=== PATIENT | male | born 1945 | race Caucasian/White ===

== ENCOUNTER 2020-01-23 09:07 | Inpatient (IN) ==
[2020-01-23] MEDS ORDERED: TYLENOL PR ONE (09:10)
[2020-01-23] MEDS ORDERED: VANCOMYCIN 1 GM/NS 1 GM/250 ML IVPB IV ONE (09:10)
[2020-01-23] MEDS ORDERED: ZOSYN 4.5 GM in NS 100 ML IV ONE (09:10)
[2020-01-23] MEDS ORDERED: NS 1,000 ML IV ONE ×2 (09:10→11:23)
--- NOTE | 2020-01-23 09:31 | Diag Imaging Result Doc PS360 ---
CHEST-PORTABLE - 01/23/2020 INDICATION: fever, cough, ams COMPARISON: 03/24/2015 FINDINGS: Stable COPD. Stable cardiomegaly and pulmonary vascular congestion. No infiltrates or edema. No large pleural effusion. IMPRESSION: COPD. Cardiomegaly and pulmonary vascular congestion. Electronically signed by Eric Escoto 01/23/2020 9:28 AM
[2020-01-23] MEDS ORDERED: LASIX IV ONE (09:42)
--- NOTE | 2020-01-23 10:00 | EKG Report ---
Test Performed on : 01/23/2020 09:32:06 AM Test Reason : AMS Blood Pressure : / mmHG Vent. Rate : 095 BPM Atrial Rate : 069 BPM P-R Int : 000 ms QRS Dur : 106 ms QT Int : 408 ms P-R-T Axes : 000 -52 054 degrees QTc Int : 512 ms Accelerated Junctional rhythm. Left axis deviation Abnormal ECG When compared with ECG of 30-MAR-2015 06:49, Junctional rhythm. has replaced Atrial fibrillation. QT has lengthened Unconfirmed Result
[2020-01-23] MEDS ORDERED: OFIRMEV 1000 MG/ISOTONIC SOLN 1,000 MG/100 ML BOTTLE IV ONE (10:13)
[2020-01-23 10:14] LABS: ALLEN TEST YES; BE -0.2 mmoll (-3.0-3.0); BLOOD TYPE ARTERIAL; HCO3-(ACT) 24.7 mmoll (20.0-26.0); METHB 0.9 % (0.0-1.5); O2(CT) 19.4 mL/dL (15.0-23.0); O2HB 95.2 % (95.0-99.0); PCO2(98.6) 41 mmHg (35-45); PO2(98.6) 82 mmHg (60-100); SAMPLE BLOOD; THB 14.5 g/dL (11.5-17.4); pH(98.6) 7.39 (7.35-7.45)
[2020-01-23 10:15] LABS: INR 1.44; PROTIME 17.8 Seconds (11.0-16.0)
[2020-01-23 10:16] LABS: MODALITY NRB
[2020-01-23 10:16] LABS: ACETONE SERUM NEGATIVE (NEGATIVE); BASO# 0.02 X1000 (0.0-0.2); BASO% 0.2 % (0.0-0.8); EOS# 0.05 X1000 (0.0-0.7); EOS% 0.4 % (0.0-10.0); HEMATOCRIT 44.7 % (42.0-52.0); HEMOGLOBIN 14.7 g/dL (14.0-18.0); IMM GRAN# 0.03 X1000 (0.0-0.04); IMM GRAN% 0.3 % (0.0-0.5); LYMPH# 0.76 X1000 (1.2-3.4); LYMPH% 6.4 % (20.5-51.1); MCH 30.8 PG (27-31); MCHC 32.9 g/dL (33-37); MCV 93.7 FL (81-99); MONO# 0.65 X1000 (0.11-0.59); MONO% 5.5 % (1.7-9.3); MPV 10.1 FL (7.4-10.4); NEUT# 10.35 X1000 (1.4-6.5); NEUT% 87.2 % (42.2-75.2); PLT 204 X1000 (130-400); PTT 34.7 Seconds (22.3-41.8); RBC 4.77 XMIL (4.7-6.1); RDW 13.9 % (11.5-14.5); WBC 11.86 X1000 (4.8-10.8)
[2020-01-23] MEDS ORDERED: OFIRMEV 1000 MG/ISOTONIC SOLN 1,000 MG/100 ML BOTTLE ONE (10:20)
[2020-01-23 10:27] LABS: AGAP 14; ALB/GLOB RATIO 1.2; ALBUMIN 4.3 g/dL (3.5-5.0); ALKALINE PHOSPHATASE 95 U/L (32-122); BUN 16 mg/dL (8-22); CALCIUM 9.3 mg/dL (8.8-10.2); CHLORIDE 103 mmol/L (98-107); CK PROFILE 72 U/L (24-204); COSMO 283; CREATININE 1.1 mg/dL (0.7-1.2); ESTIMATED GFR > 60; GLUCOSE 142 mg/dL (70-104); GOT 27 U/L (10-34); GPT 17 U/L (10-44); POTASSIUM 5.7 mmol/L (3.5-5.1); SODIUM 140 mmol/L (136-145); TCO2 23 mmol/L (25-35); TOTAL BILIRUBIN 0.87 mg/dL (0.20-1.00); TOTAL PROTEIN 7.9 g/dL (6.3-8.3)
[2020-01-23 11:05] LABS: URINE SOURCE CATH
[2020-01-23 11:12] LABS: BILIRUBIN URINE NEGATIVE (NEGATIVE); BLOOD URINE NEGATIVE (NEGATIVE); COLOR YELLOW; GLUCOSE URINE NEGATIVE (NEGATIVE); KETONE URINE NEGATIVE (NEGATIVE); LEUKOCYTES URINE NEGATIVE (NEGATIVE); NITRITE URINE NEGATIVE (NEGATIVE); PH URINE 5.5; PROTEIN URINE NEGATIVE (NEGATIVE); SP GRAVITY URINE 1.014; TURBIDITY URINE CLEAR (CLEAR); UROBILINOGEN URINE NORMAL (NORMAL)
[2020-01-23 11:13] LABS: UR EPITHELIAL CELLS <10 /HPF (<10); URINE BACTERIA NEGATIVE /HPF; URINE RBC <10 /HPF (<10); URINE WBC <10 /HPF (<10)
--- NOTE | 2020-01-23 11:21 | PROVIDER DOCUMENTATION ---
This chart was entered by Mal Flanagan Scribe, acting as scribe for Alvin Beaulieu MD. HPI-Fever - General Stated Complaint: UNRESPONSIVE/FEVER/SOB Time Seen by Provider: 01/23/20 09:07 Source: family, EMS Allergies/Adverse Reactions: Patient Allergies Allergy/AdvReac Type Severity Reaction Status Date / Time cefaclor [From Ceclor] Allergy Unknown Verified 01/15/20 15:15 Home Medications: Home Medication List Medication Instructions Recorded Confirmed Last Taken Type Amlodipine [Norvasc] 10 mg PO DAILY 03/24/15 03/24/15 03/24/15 History 10 mg Furosemide [Lasix] 40 mg PO DAILY 03/24/15 03/24/15 03/24/15 History 40 mg Lisinopril 40 mg PO DAILY 03/24/15 03/24/15 03/24/15 History 40 mg Metformin [Glucophage] 500 mg PO DAILY 03/24/15 03/24/15 03/24/15 History 500 mg Terazosin [Hytrin] 5 mg PO DAILY 03/24/15 03/24/15 03/24/15 History 5 mg - History of Present Illness-Fever Nature of Presenting Problem: Pt is a 74 y/o M found this AM at [facility] by staff non-responsive, respirato ry distress with a fever of 102. SAT in the 80's. Staff staff reports pt is normally wheel chair bound and responsive. Report is [facility] has had exposure to COVID. Sister reports pt has reported multiple times he does want to be a DNR. Fever Severity/Quality: reports: greater than 102 F Onset/Duration: reports: this morning Timing: reports: still present Severity: reports: moderate Context: reports: decreased mental status Cognitive Baseline: alert, oriented x3 Modifying Factors: improves with: nothing Associated Symptoms: reports: shortness of breath Similar Symptoms Previously?: No Recently seen or treated by another doctor?: No Review of Systems - Adult - REVIEW OF SYSTEMS - ADULT Constitutional: reports: chills, fever Eyes: reports: no symptoms reported Ears, Nose, Mouth & Throat: reports: no symptoms reported Cardiovascular: denies: chest pain, edema Respiratory: reports: shortness of breath, wheezing Gastrointestinal: denies: nausea, vomiting Genitourinary: reports: no symptoms reported Musculoskeletal: reports: no symptoms reported Integumentary: denies: hives, itching Neurological: denies: dizziness/vertigo, headache/migraines Psychiatric: reports: no symptoms reported Endocrine: reports: no symptoms reported Hematologic/Lymphatic: reports: no symptoms reported Allergic/Immunologic: reports: no symptoms reported All Other Systems: Reviewed and Negative Past History - Adult - PAST MEDICAL HISTORY-ADULT Review of Records: reports: Old Records Reviewed, Nursing Assessment Review, Medications Reviewed - SOCIAL HISTORY Alcohol Use Frequency: never Living Situation: care facility Physical Exam-General - PHYSICAL EXAM-ADULT Initial Vital Signs Reviewed: Yes - CONSTITUTIONAL General Appearance: alert (Pt responds to loud voice tyler.), moderate distress (Mild to moderate) - EYES Eyes: PERRL/EOMI, pink conjunctivae - HEAD, EARS, NOSE, MOUTH & THROAT HENMT: moist mucous membranes, normal ENT inspection - NECK Neck: supple, normal inspection - RESPIRATORY Respiratory: decreased breath sounds, rhonchi (all garcia), increased rate - CARDIOVASCULAR Cardiovascular: normal peripheral pulses, tachycardia - GASTROINTESTINAL (ABDOMEN) Abdominal Exam: non tender, soft, distended - MUSCULOSKELETAL Back Exam: normal inspection, no CVA tenderness, no vertebral tenderness Extremity: no pedal edema. negative: normal gait (wheel chair bound) - SKIN Integumentary: normal color, warm/dry - NEUROLOGIC Neurologic: grossly normal, no motor/sensory deficits - PSYCHIATRIC Psych/Mental Status: negative: normal mood/affect, normal thought content, normal thought process, oriented x 3 Progress - PLAN OF CARE/RESULTS Progress/Plan/Lab Results: Vital Signs - 8 hr 01/23/20 09:02 01/23/20 11:14 Temperature 100.0 F H 100.9 F H Pulse Rate 97 H 88 Respiratory Rate 25 H 21 Blood Pressure 140/68 117/62 O2 Sat by Pulse Oximetry 95 96 01/23/20 09:18 Influenza Screen - Final Nasopharyngeal 01/23/20 09:18 Group A Strep Rapid Antigen - Final Throat Laboratory Results - last 24 hr 01/23/20 01/23/20 01/23/20 09:22 09:22 09:22 WBC RBC Hgb Hct MCV MCH MCHC RDW Std Deviation Plt Count MPV Immature Gran % (Auto) Neut % (Auto) Lymph % (Auto) [place] % (Auto) Eos % (Auto) Baso % (Auto) Immature Gran # (Auto) Neut # (Auto) Lymph # (Auto) [place] # (Auto) Eos # (Auto) Baso # (Auto) PT INR PTT (Actin FS) Specimen Type Sample Site pH pCO2 pO2 HCO3 Base Excess Oxyhemoglobin ABG O2 Sat (Calculated) ABG O2 Saturation ABG Carboxyhemoglobin ABG Methemoglobin Gen Test A-a O2 Difference Total Hemoglobin Lactate Liter Flow Blood Gas Modality FiO2 % Sodium 140 Potassium 5.7 H Chloride 103 Carbon Dioxide 23 L Anion Gap 14 BUN 16 Creatinine 1.1 Estimated GFR/1.73 m2 > 60 BUN/Creatinine Ratio 15 Glucose 142 H POC Glucose Calculated Osmolality 283 Calcium 9.3 Total Bilirubin 0.87 AST 27 ALT 17 Alkaline Phosphatase 95 Creatine Kinase 72 Troponin T High Sens Joo-B-Ddtoetxblyu Pept 203 Total Protein 7.9 Albumin 4.3 Globulin 3.6 Albumin/Globulin Ratio 1.2 Plasma Lactate 2.5 H Urine Source Urine Color Urine Turbidity Urine pH Ur Specific [place] Urine Protein Ur Glucose (Stick) Ur Ketones (Stick) Urine Blood Urine Nitrite Urine Bilirubin Urobilinogen Dipstick Urine Leukocytes Urine WBC (Auto) Urine RBC (Auto) U Epithel Cells (Auto) Urine Bacteria (Auto) Acetone Level NEGATIVE 01/23/20 01/23/20 01/23/20 09:22 09:22 09:22 WBC 11.86 H RBC 4.77 Hgb 14.7 Hct 44.7 MCV 93.7 MCH 30.8 MCHC 32.9 L RDW Std Deviation 13.9 Plt Count 204 MPV 10.1 Immature Gran % (Auto) 0.3 Neut % (Auto) 87.2 H Lymph % (Auto) 6.4 L [place] % (Auto) 5.5 Eos % (Auto) 0.4 Baso % (Auto) 0.2 Immature Gran # (Auto) 0.03 Neut # (Auto) 10.35 H Lymph # (Auto) 0.76 L [place] # (Auto) 0.65 H Eos # (Auto) 0.05 Baso # (Auto) 0.02 PT 17.8 H INR 1.44 PTT (Actin FS) 34.7 Specimen Type Sample Site pH pCO2 pO2 HCO3 Base Excess Oxyhemoglobin ABG O2 Sat (Calculated) ABG O2 Saturation ABG Carboxyhemoglobin ABG Methemoglobin Gen Test A-a O2 Difference Total Hemoglobin Lactate Liter Flow Blood Gas Modality FiO2 % Sodium Potassium Chloride Carbon Dioxide Anion Gap BUN Creatinine Estimated GFR/1.73 m2 BUN/Creatinine Ratio Glucose POC Glucose Calculated Osmolality Calcium Total Bilirubin AST ALT Alkaline Phosphatase Creatine Kinase Troponin T High Sens 17 Spf-Y-Lqyjibfhwch Pept Total Protein Albumin Globulin Albumin/Globulin Ratio Plasma Lactate Urine Source Urine Color Urine Turbidity Urine pH Ur Specific [place] Urine Protein Ur Glucose (Stick) Ur Ketones (Stick) Urine Blood Urine Nitrite Urine Bilirubin Urobilinogen Dipstick Urine Leukocytes Urine WBC (Auto) Urine RBC (Auto) U Epithel Cells (Auto) Urine Bacteria (Auto) Acetone Level 01/23/20 01/23/20 01/23/20 10:00 10:29 10:40 WBC RBC Hgb Hct MCV MCH MCHC RDW Std Deviation Plt Count MPV Immature Gran % (Auto) Neut % (Auto) Lymph % (Auto) [place] % (Auto) Eos % (Auto) Baso % (Auto) Immature Gran # (Auto) Neut # (Auto) Lymph # (Auto) [place] # (Auto) Eos # (Auto) Baso # (Auto) PT INR PTT (Actin FS) Specimen Type ARTERIAL Sample Site R RADIAL pH 7.39 pCO2 41 pO2 82 HCO3 24.7 Base Excess -0.2 Oxyhemoglobin 95.2 ABG O2 Sat (Calculated) 19.4 ABG O2 Saturation 98.0 ABG Carboxyhemoglobin 2.00 ABG Methemoglobin 0.9 Gen Test YES A-a O2 Difference 580.0 Total Hemoglobin 14.5 Lactate 2.00 Liter Flow 15.0 Blood Gas Modality NRB FiO2 % 100.0 Sodium Potassium Chloride Carbon Dioxide Anion Gap BUN Creatinine Estimated GFR/1.73 m2 BUN/Creatinine Ratio Glucose POC Glucose 119 H Calculated Osmolality Calcium Total Bilirubin AST ALT Alkaline Phosphatase Creatine Kinase Troponin T High Sens Bkv-L-Xbqwzymmldy Pept Total Protein Albumin Globulin Albumin/Globulin Ratio Plasma Lactate Urine Source CATH Urine Color YELLOW Urine Turbidity CLEAR Urine pH 5.5 Ur Specific [place] 1.014 Urine Protein NEGATIVE Ur Glucose (Stick) NEGATIVE Ur Ketones (Stick) NEGATIVE Urine Blood NEGATIVE Urine Nitrite NEGATIVE Urine Bilirubin NEGATIVE Urobilinogen Dipstick NORMAL Urine Leukocytes NEGATIVE Urine WBC (Auto) <10 Urine RBC (Auto) <10 U Epithel Cells (Auto) <10 Urine Bacteria (Auto) NEGATIVE Acetone Level Orders Category Date Time Status Cardiac Monitoring DIRECTED Care 01/23/20 09:07 Active Sharp Cath Insertion ORDERED Care 01/23/20 09:08 Active NEWS Score >or=5:Order NEWS Bundle S.O. NOW Care 01/23/20 09:56 Completed Oxygen Therapy- ED Nursing DIRECTED Care 01/23/20 09:07 Active Resuscitation Status Routine Care 01/23/20 09:09 Ordered Saline Loc NOW Care 01/23/20 09:07 Active CHEST-PORTABLE [RAD] Stat Exams 01/23/20 09:07 Completed ABG [RESP] Routine Lab 01/23/20 10:00 Completed ACETONE SERUM [CHEM] Stat Lab 01/23/20 09:22 Completed BLOOD CULTURE [BLDCUL] Stat Lab 01/23/20 09:27 Received CBC WITH ELECTRONIC DIFF [HEME] Stat Lab 01/23/20 09:22 Completed CK PROFILE [SP CHEM] Stat Lab 01/23/20 09:22 Completed COMPREHENSIVE METABOLIC PANEL [CHEM] Stat Lab 01/23/20 09:22 Completed DIRECT STREP Stat Lab 01/23/20 09:18 Completed INFLUENZA SCREEN A/B Stat Lab 01/23/20 09:18 Completed LACTATE, PLASMA [CHEM] Stat Lab 01/23/20 09:22 Completed FREEDOM COVID19 [FREEDOM] Routine Lab 01/23/20 11:04 Received PRO B-NATRIURETIC PEPTIDE Stat Lab 01/23/20 09:22 Completed PROTIME WITH INR [COAG] Stat Lab 01/23/20 09:22 Completed PTT [COAG] Stat Lab 01/23/20 09:22 Completed SPUTUM CULTURE WITH GRAM STAIN [RM] Stat Lab 01/23/20 09:10 Uncollected TROPONIN T HIGH SENSITIVITY Stat Lab 01/23/20 09:22 Completed URINALYSIS W/POSS RFLX CULT [URINALYSIS] Stat Lab 01/23/20 10:40 Completed 0.9% Sodium Chloride Inj [Ns] 1,000 ml Med 01/23/20 09:10 Discontinued IV 999 mls/hr Acetaminophen [Ofirmev 1000 mg/Isotonic Soln] Med 01/23/20 10:20 Discontinued 1,000 mg in 100 ml .ROUTE As directed Acetaminophen [Ofirmev 1000 mg/Isotonic Soln] Med 01/23/20 10:13 Discontinued 1,000 mg in 100 ml IV ONCE Acetaminophen [Tylenol] Med 01/23/20 09:10 Discontinued 650 mg IA NOW ONE Furosemide [Lasix] Med 01/23/20 09:42 Discontinued 40 mg IV NOW ONE Piperacillin/Tazobactam [Zosyn] 4.5 gm Med 01/23/20 09:10 Discontinued 0.9% Sodium Chloride Inj [Ns] 100 ml IV NOW Vancomycin 1 gm/Ns Med 01/23/20 09:10 Discontinued 1 gm in 250 ml IV NOW CP/SOB/Palp >45 yrs of Age Stat Oth 01/23/20 09:05 Ordered EKG [EKG] Stat Ther 01/23/20 09:07 Draft At [address] Sal pt is awake and told her his name. She reports she has in on 2L SAT 93% Result Diagrams: 01/23/20 09:22 01/23/20 09:22 - REASSESSMENT Reassessment #1 Time Reassessed: 11:16 Status: improving - EKG 1 Time of EKG reading by physician:: 09:32 EKG Read and Signed by:: Alvin Beaulieu EKG Interpretation (*Must complete 3 of following elements*): Abnormal Rate: 95 Rhythm: A-fib QRS: PVC's Comments: prolong QT - XRAY 1 XRAY Study: Chest Impression: Abnormal ( IMPRESSION: COPD. Cardiomegaly and pulmonary vascular congestion. Electronically signed by Eric Escoto 01/23/2020 9:28 AM) - CONSULTS/PCP/HOSPITALIST Notification #1 *Consult/PCP/Hospitalist*: Call place [phone] Solo for Admission Returned call [phone] Time Discussed: 11:18 Reason/Comments: admission Consult Disposition: Admit (Accepts) Departure - Departure Date of Disposition Decision: 01/23/20 Time of Disposition Decision: 11:19 DIAGNOSIS: Sepsis due to pneumonia, Severe hypoxemia Altered mental status, unspecified Qualifiers: Altered mental status type: somnolence Qualified Code(s): R40.0 - Somnolence Disposition: ADMITTED INPATIENT 09 Certified Medical Emergency: Emergent Condition: Fair Referrals and Follow-Ups: Winnie Solo MD [Primary Care Provider] - - Critical Care Note This patient required my direct & personal management of CC.: Yes Attestation - Physician/ TYLER Attestation Patient care was provided by Advanced Practice Provider:: No The physician spent face to face time with patient:: Yes Advanced Practice Provider documentation review:: Supervising physician onsite and consulted in the evaluation and care of this patient. The physician did have a face to face encounter with the patient. This chart was documented by the indicated scribe, (Mal Flanagan Scribe) and accurately reflects the services I performed and decisions made by me, Alvin Beaulieu MD, as attested by the provider's signature.
[2020-01-23] MEDS ORDERED: COMBIVENT RESPIMAT INHALER INH PRN (11:23)
[2020-01-23] MEDS: VENTOLIN HFA INH PRN (17:08)
[2020-01-23] MEDS ORDERED: NEXIUM IV SCH (17:45)
[2020-01-23] MEDS ORDERED: SODIUM CHLORIDE 0.9% INJ SCH (17:45)
[2020-01-23] MEDS ORDERED: LOVENOX SUBQ SCH (17:45)
--- NOTE | 2020-01-23 21:02 | HISTORY AND PHYSICAL ---
CHIEF COMPLAINT: Unresponsive, fever and shortness of breath. HISTORY OF PRESENT ILLNESS: He is a 74-year-old white gentleman. Has been living in [facility] for the last 6 months since he had a stroke, admitted in [facility]. Apparently, he did expose some COVID virus and the patient was normally wheelchair-bound. He had a fever 102. He has some productive cough. Brought to the emergency room. I did review the workup and he has a lot of productive cough and basically admitted to the hospital for rule out nosocomial infection, rule out COVID-19. He was in isolation admitted in basically at [facility]. The initial fever was 102. I did examine the patient this evening. He was confused, able to follow with verbal commands. He has a lot of productive cough noted and the nurse was at bedside, unable to collect the sputum sample. He is getting IV fluids, and IV antibiotics and further workup and most of the work information was obtained from the prior records. He has a white cell count 11,000. PAST MEDICAL HISTORY: COPD, history of tobacco abuse, chronic back pain, type 2 diabetes, hypertension, osteoarthritis, low HDL, CVA with a Right cerebellar stroke, CAD, atrial fibrillation, hypothyroidism, dementia, BPH, vitamin D deficiency, hyperlipidemia. PAST SURGICAL HISTORY: Tonsillectomy, back surgery, C5-C6 fusion, left knee arthroplasty, and also had a stent placed in the RCA. MEDICATIONS: Amlodipine 10 mg daily, metformin 500 daily, vitamin C 500 daily, aspirin 81 mg daily, Lipitor 40 daily, vitamin D3 5000 units daily, Breo 1 puff daily, Synthroid 125 mcg daily, losartan 50 daily, multivitamin 1 tablet daily, Percocet 1 tablet p.o. b.i.d., Xarelto 20 mg daily, lactulose 30 mL p.o. t.i.d., Lyrica 100 t.i.d., Flomax 0.4 daily, Effexor 37.5 daily. ALLERGIES: To cefaclor and cephalosporin. SOCIAL HISTORY: He is single. Sister has power of document review attorney. He is nonsmoking. No alcohol. Living will, DNR. FAMILY HISTORY: Noncontributory. REVIEW OF SYSTEMS: Not able to obtain. He is completely confused. OBJECTIVE: Vital Signs: Temperature is 99.5 degrees, pulse 76. Vitals are stable. On 2 L nasal cannula 97%. General: I's and O's negative. 1000 mL. Influenza screen was negative. COVID- 19 is pending. Blood cultures are pending. Throat cultures are pending. HEENT: Atraumatic, normocephalic. Pupils equal, reactive to light and tongue is in midline. Chest: Has some rhonchi. Heart: Sounds are very distant. Abdomen: Belly is soft, nontender. Extremities: Able to move the all the extremities and able to follow. No obvious deficits noted. INVESTIGATIONS: White cell count 11, hematocrit 44, platelets 204,000. PT 17, INR 1.4. ABG, PO2 82 on 100%. SMA 7 is normal. LFTs were normal. Cardiac enzymes were negative. Plasma lactate 2.6. Urinalysis is negative. Chest x-ray, COPD, mild pulmonary congestion. No infiltrates. ASSESSMENT AND PLAN: 1. A 74-year-old white male came in with altered mental status, fever and with underlying dementia, stroke, coronary artery disease and chronic obstructive pulmonary disease, rule Coronavirus Disease 2019. We will treat with oxygen and started on Zosyn and Levaquin and sputum cultures and follow up. Continue isolation. 2. He has a Sharp placed. Continue on Proscar. 3. Coronary artery disease with atrial fibrillation. Continue on aspirin. 4. Blood pressure is on the low side. Continue on IV fluids 75 mL an hour and we will hold the medications. 5. Chronic obstructive pulmonary disease, on Breo. 6. Constipation, on lactulose. 7. Deep venous thrombosis/gastrointestinal prophylaxis. For the time being, we will restart his home medications. 8. Hyperlipidemia, on Lipitor. 9. Living will, Do Not Resuscitate. cc: Ranulfo Solo MD [facility]
[2020-01-23] MEDS: PROSCAR PO SCH (21:14)
[2020-01-23] MEDS: LIPITOR PO SCH (21:14)
[2020-01-23] MEDS: ZOSYN 3.375 GM in NS 50 ML IV SCH (21:15)
[2020-01-23] MEDS: SODIUM CHLORIDE 0.9% INJ SCH (21:15)
[2020-01-23] MEDS: LEVAQUIN 500 MG/D5W 500 MG/100 ML IVPB IV SCH (21:15)
[2020-01-23] MEDS: PROTONIX IV SCH (21:15)
[2020-01-24] MEDS: ZOSYN 3.375 GM in NS 50 ML IV SCH ×4 (04:16→20:44)
[2020-01-24 05:33] LABS: BASO# 0.01 X1000 (0.0-0.2); BASO% 0.1 % (0.0-0.8); HEMATOCRIT 36.5 % (42.0-52.0); IMM GRAN# 0.04 X1000 (0.0-0.04); IMM GRAN% 0.3 % (0.0-0.5); LYMPH% 6.8 % (20.5-51.1); MCH 31.2 PG (27-31); MCHC 32.9 g/dL (33-37); MCV 94.8 FL (81-99); MONO# 0.66 X1000 (0.11-0.59); MONO% 5.6 % (1.7-9.3); MPV 10.1 FL (7.4-10.4); NEUT% 87.2 % (42.2-75.2); PLT 180 X1000 (130-400); RBC 3.85 XMIL (4.7-6.1); RDW 14.3 % (11.5-14.5); WBC 11.81 X1000 (4.8-10.8)
[2020-01-24 05:37] LABS: AGAP 13; BUN 18 mg/dL (8-22); CALCIUM 8.8 mg/dL (8.8-10.2); CHLORIDE 105 mmol/L (98-107); COSMO 289; ESTIMATED GFR > 60; GLUCOSE 134 mg/dL (70-104); SODIUM 143 mmol/L (136-145); TCO2 25 mmol/L (25-35)
[2020-01-24 06:04] LABS: LYMPHS 2 % (21-51); SEGS 94 % (42-75)
[2020-01-24] MEDS: SYNTHROID PO SCH (06:26)
--- NOTE | 2020-01-24 07:35 | Diag Imaging Result Doc PS360 ---
CHEST-1 VIEW - 01/24/2020 INDICATION: SOB COMPARISON: 01/23/2020 FINDINGS: Stable pulmonary vascular congestion. Heart size appears top normal. No infiltrates or edema. No pneumothorax or pleural effusion. IMPRESSION: Pulmonary vascular congestion but otherwise no acute disease. Electronically signed by Eric Escoto 01/24/2020 7:32 AM
[2020-01-24] MEDS: VENTOLIN HFA INH PRN (08:14)
[2020-01-24] MEDS: BREO ELLIPTA 100/25 MCG INH INH SCH (09:25)
[2020-01-24] MEDS: ASPIRIN PO SCH (11:01)
[2020-01-24] MEDS: VITAMIN D PO SCH (11:01)
[2020-01-24] MEDS: VITAMIN C PO SCH (11:01)
[2020-01-24] MEDS: EFFEXOR XR PO SCH (11:01)
[2020-01-24] MEDS: LACTULOSE PO SCH ×3 (11:27→18:45)
[2020-01-24] MEDS: PERCOCET-10 PO PRN ×2 (14:19→20:45)
--- NOTE | 2020-01-24 14:51 | PROGRESS NOTE ---
DATE: 01/24/2020 SUBJECTIVE: The patient complains of having right shoulder pain and demands his pain medicine to be restarted. He otherwise denies having any acute complaints. He was initially admitted with unresponsiveness along with fever but he seems to be alert and awake this morning. OBJECTIVE: Vital Signs: Temperature 98.4 degrees, pulse 73 per minute, respiratory rate 20 per minute, blood pressure 119/68, pulse oximetry 97 percent with 3 L of oxygen via nasal cannula. General: Patient is alert and oriented x3. He does not appear to be in any acute distress. Cardiovascular: First and second heart sounds are audible without any murmurs or gallops. Respiratory: Bilateral lung air entry is good without any rales or rhonchi. Abdomen: Soft and nondistended. Normal bowel sounds are present. DIAGNOSTIC DATA: CBC shows WBC count of 11.81 with 87% neutrophils. Hemoglobin is 12.0 with hematocrit 36.5 and platelet count of 180,000. Basic metabolic panel done this morning is nondiagnostic. ABG done yesterday was also within normal limits. Chest x-ray done this morning shows some pulmonary vascular congestion but otherwise no acute disease. IMPRESSION: A 74-year-old gentleman who was admitted with altered mental status and fever of unknown etiology. Multiple comorbid conditions including coronary artery disease, chronic obstructive pulmonary disease and history of stroke with dementia. PLAN: The patient has been admitted to [facility] and has been on isolation since he has been tested for COVID-19. The results of that test is pending at the time of this dictation. We will continue with broad-spectrum antibiotics along with supplemental oxygen and general supportive care. Since he is already getting better and his mental status has improved, I am going to restart his oxycodone to be given to him on as-needed basis for chronic osteoarthritis pain. Further recommendations will be as per hospital course. cc: MD Ranulfo Paul MD
[2020-01-24] MEDS: LYRICA PO SCH (20:45)
[2020-01-24] MEDS: LEVAQUIN 500 MG/D5W 500 MG/100 ML IVPB IV SCH (20:45)
[2020-01-24] MEDS: LIPITOR PO SCH (20:45)
[2020-01-24] MEDS: PROSCAR PO SCH (20:46)
[2020-01-24] MEDS: PROTONIX IV SCH (20:46)
[2020-01-24] MEDS: SODIUM CHLORIDE 0.9% INJ SCH (20:46)
[2020-01-25] MEDS: ZOSYN 3.375 GM in NS 50 ML IV SCH ×4 (04:45→20:27)
[2020-01-25] MEDS: LYRICA PO SCH ×3 (04:45→20:26)
[2020-01-25] MEDS: SYNTHROID PO SCH ×2 (04:45→06:33)
[2020-01-25 06:38] LABS: BASO# 0.01 X1000 (0.0-0.2); BASO% 0.1 % (0.0-0.8); EOS# 0.09 X1000 (0.0-0.7); HEMATOCRIT 36.4 % (42.0-52.0); HEMOGLOBIN 11.8 g/dL (14.0-18.0); IMM GRAN# 0.03 X1000 (0.0-0.04); IMM GRAN% 0.3 % (0.0-0.5); LYMPH% 6.7 % (20.5-51.1); MCH 30.7 PG (27-31); MCHC 32.4 g/dL (33-37); MCV 94.8 FL (81-99); MONO# 0.69 X1000 (0.11-0.59); MONO% 7.8 % (1.7-9.3); MPV 10.1 FL (7.4-10.4); NEUT# 7.48 X1000 (1.4-6.5); NEUT% 84.1 % (42.2-75.2); PLT 173 X1000 (130-400); RBC 3.84 XMIL (4.7-6.1); RDW 13.6 % (11.5-14.5)
[2020-01-25 07:06] LABS: AGAP 10; BUN 12 mg/dL (8-22); CHLORIDE 99 mmol/L (98-107); COSMO 273; CREATININE 0.9 mg/dL (0.7-1.2); ESTIMATED GFR > 60; GLUCOSE 124 mg/dL (70-104); POTASSIUM 3.6 mmol/L (3.5-5.1); SODIUM 136 mmol/L (136-145); TCO2 27 mmol/L (25-35)
[2020-01-25] MEDS: VITAMIN D PO SCH (09:28)
[2020-01-25] MEDS: ASPIRIN PO SCH (09:28)
[2020-01-25] MEDS: EFFEXOR XR PO SCH (09:28)
[2020-01-25] MEDS: PERCOCET-10 PO PRN ×2 (09:28→20:26)
[2020-01-25] MEDS: XARELTO PO SCH (09:28)
[2020-01-25] MEDS: VITAMIN C PO SCH (09:28)
[2020-01-25] MEDS: THERA M PLUS PO SCH (09:29)
[2020-01-25] MEDS: LACTULOSE PO SCH ×3 (09:31→16:18)
[2020-01-25] MEDS: BREO ELLIPTA 100/25 MCG INH INH SCH (09:37)
[2020-01-25] MEDS: PROSCAR PO SCH (20:26)
[2020-01-25] MEDS: LIPITOR PO SCH (20:26)
[2020-01-25] MEDS: LEVAQUIN 500 MG/D5W 500 MG/100 ML IVPB IV SCH (20:27)
[2020-01-25] MEDS: PROTONIX IV SCH (20:28)
[2020-01-25] MEDS: SODIUM CHLORIDE 0.9% INJ SCH (20:28)
[2020-01-25] MEDS: VENTOLIN HFA INH PRN (20:39)
[2020-01-26] MEDS: ZOSYN 3.375 GM in NS 50 ML IV SCH ×4 (03:57→20:46)
[2020-01-26] MEDS: SYNTHROID PO SCH ×2 (03:58→06:11)
[2020-01-26] MEDS: LYRICA PO SCH ×4 (03:58→20:47)
--- NOTE | 2020-01-26 04:26 | PROGRESS NOTE ---
DATE: 01/25/2020 SUBJECTIVE: The patient denies having any acute complaints this morning and feels well. OBJECTIVE: Vital Signs: Temperature 98 degrees, pulse 64 per minute, respiratory rate 17 per minute, blood pressure 139/71, pulse oximetry 96% on room air. General: Patient is alert and oriented x3. He does not appear to be in any acute distress. Cardiovascular: First and second heart sounds are audible without any murmurs or gallops. Respiratory: Bilateral lung air entry is slightly decreased but there are no rales or rhonchi present on auscultation. Abdomen: Benign. DIAGNOSTIC DATA: CBC shows WBC count of 8.90, hemoglobin 11.8, hematocrit 36.4, and platelet count of 173,000. Basic metabolic panel is nondiagnostic. IMPRESSION: 1. Altered mental status and fever of unknown etiology and both of which have now resolved. 2. Coronary artery disease. 3. Chronic obstructive pulmonary disease. 4. History of stroke with dementia. 5. Hypertension. 6. Dyslipidemia. 7. Benign prostatic hypertrophy. PLAN: Earlier we wanted to discharge him home but [facility] will not take him today. Would therefore continue with the current treatment with broad-spectrum antibiotics including Zosyn and levofloxacin. We will continue with routine supportive care and his routine home medications. Since he will remain at the hospital, I am worried that he will get deconditioning and therefore, I am going to order physical therapy for him. Further recommendations will be as per hospital course. cc: MD Ranulfo Paul MD
[2020-01-26 05:53] LABS: BASO# 0.01 X1000 (0.0-0.2); BASO% 0.2 % (0.0-0.8); EOS# 0.22 X1000 (0.0-0.7); EOS% 3.5 % (0.0-10.0); HEMATOCRIT 37.4 % (42.0-52.0); HEMOGLOBIN 12.1 g/dL (14.0-18.0); IMM GRAN# 0.02 X1000 (0.0-0.04); IMM GRAN% 0.3 % (0.0-0.5); LYMPH# 0.77 X1000 (1.2-3.4); LYMPH% 12.2 % (20.5-51.1); MCH 30.6 PG (27-31); MCHC 32.4 g/dL (33-37); MCV 94.7 FL (81-99); MONO# 0.54 X1000 (0.11-0.59); MONO% 8.6 % (1.7-9.3); MPV 9.9 FL (7.4-10.4); NEUT# 4.75 X1000 (1.4-6.5); NEUT% 75.2 % (42.2-75.2); PLT 203 X1000 (130-400); RBC 3.95 XMIL (4.7-6.1); RDW 13.8 % (11.5-14.5); WBC 6.31 X1000 (4.8-10.8)
[2020-01-26 06:10] LABS: AGAP 9; BUN 18 mg/dL (8-22); CALCIUM 8.4 mg/dL (8.8-10.2); CHLORIDE 104 mmol/L (98-107); COSMO 282; CREATININE 0.9 mg/dL (0.7-1.2); ESTIMATED GFR > 60; GLUCOSE 119 mg/dL (70-104); POTASSIUM 3.8 mmol/L (3.5-5.1); SODIUM 140 mmol/L (136-145); TCO2 27 mmol/L (25-35)
[2020-01-26] MEDS: BREO ELLIPTA 100/25 MCG INH INH SCH (08:29)
[2020-01-26] MEDS: VITAMIN D PO SCH (08:36)
[2020-01-26] MEDS: THERA M PLUS PO SCH (08:36)
[2020-01-26] MEDS: ASPIRIN PO SCH (08:36)
[2020-01-26] MEDS: EFFEXOR XR PO SCH (08:36)
[2020-01-26] MEDS: VITAMIN C PO SCH (08:36)
[2020-01-26] MEDS: XARELTO PO SCH (08:36)
[2020-01-26] MEDS: LACTULOSE PO SCH (08:37)
[2020-01-26] MEDS: PERCOCET-10 PO PRN (08:37)
--- NOTE | 2020-01-26 18:46 | PROGRESS NOTE ---
DATE: 01/26/2020 SUBJECTIVE: Events noted. Patient was out of isolation. COVID-19 was negative. Sputum cultures grew Klebsiella sensitive to Levaquin. PHYSICAL EXAMINATION: Temperature is 98 degrees. Vitals are stable. Bilateral air entry. Heart sounds are regular. Belly is soft, nontender and no obvious deficits. INVESTIGATIONS: White cell count 6.3, hematocrit 37, platelets 203,000. Sodium 140, potassium 3.8, chloride 104, BUN 18, creatinine 0.9, glucose 119 and coronavirus is negative. Sputum cultures Klebsiella. ASSESSMENT AND PLAN: 1. Altered mental status improving. 2. Bronchopneumonia with Klebsiella. Continue on IV Levaquin. Currently he is also on Zosyn. 3. Hypothyroidism on Synthroid. 4. Coronary artery disease with paroxysmal atrial fibrillation, stable. 5. History of right cerebellar stroke with left kenyetta, stable. 6. Discontinue Sharp. 7. Public Health Dentist for disposition and will follow up. Out of the bed with physical therapy. Living will DNR. LEVEL OF DOCUMENTATION: 25 minutes. cc: Ranulfo Solo MD
[2020-01-26] MEDS: LEVAQUIN 500 MG/D5W 500 MG/100 ML IVPB IV SCH (20:46)
[2020-01-26] MEDS: LIPITOR PO SCH (20:47)
[2020-01-26] MEDS: SODIUM CHLORIDE 0.9% INJ SCH (20:47)
[2020-01-26] MEDS: PROTONIX IV SCH (20:47)
[2020-01-26] MEDS: PROSCAR PO SCH (20:48)
[2020-01-27] MEDS: PERCOCET-10 PO PRN ×2 (01:16→07:00)
[2020-01-27] MEDS: ZOSYN 3.375 GM in NS 50 ML IV SCH ×3 (03:53→15:48)
[2020-01-27] MEDS: LYRICA PO SCH ×2 (06:05→13:07)
[2020-01-27] MEDS: SYNTHROID PO SCH (06:05)
[2020-01-27] MEDS ORDERED: PREVNAR 13 IM ONE (08:32)
--- NOTE | 2020-01-27 08:59 | DISCHARGE SUMMARY ---
ADMISSION DATE: 01/23/2020 DISCHARGE DATE: 01/27/2020 DISCHARGING DIAGNOSIS: Altered mental status due to upper respiratory infection with bronchopneumonia due to extended-spectrum beta-lactamases (ESBL) negative. SECONDARY DIAGNOSES: 1. Coronary artery disease with a stent in the right coronary artery. 2. Paroxysmal atrial fibrillation. 3. 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 4. Chronic obstructive pulmonary disease. 5. Chronic back pain. 6. Type 2 diabetes. 7. Hypertension. 8. Hypothyroidism. 9. Mild cognitive impairment. 10. Benign prostatic hypertrophy. 11. Vitamin D deficiency. 12. Hyperlipidemia. BRIEF HISTORY: Please see the H and P that was done on 01/23/2020. In brief, he is a 74-year-old white gentleman with above problems who was brought in from [facility] with altered mental status, fever 101 to 102, cough. The patient was admitted in [facility]. HOSPITAL COURSE: He was ruled out for COVID-19 infection. Chest x-ray showed bronchopneumonia. Sputum cultures grew Klebsiella. He was given Levaquin and Zosyn, oxygen, bronchodilators, IV fluids. The patient got better and came back to the baseline. Sharp was discontinued. I did the bladder scan. He was emptying the bladder. Rest of the hospital course was uneventful. LABORATORY DATA: The laboratory data is as follows: White cell count 6.3, hematocrit 37.4, platelet count 203,000. Sodium 140, potassium 3.8, BUN 18, creatinine 0.9 glucose 111. Urinalysis is clear. Blood cultures were negative. Group A strep antigen is negative. Influenza was negative. Sputum cultures are Klebsiella. The chest x-ray, no acute disease. DISCHARGE INSTRUCTIONS/MEDICATIONS: The discharge instructions are as follows: Initiate vaccination protocol prior to the discharge. Amlodipine 10 daily, metformin 500 daily, vitamin C 500 daily, aspirin 81 mg daily, Lipitor 40 daily, vitamin D 5000 units daily, finasteride 5 mg at bedtime, Breo 1 puff daily, Synthroid 125 mcg daily, losartan 50 daily, multivitamin 1 tablet daily, Percocet 10 as needed for pain, Xarelto 20 mg daily, lactulose 30 mL p.o. t.i.d., Lyrica 100 t.i.d., Flomax 0.4 daily, Effexor 37.5 daily, Levaquin 750 daily for 7 days. Out of the bed with physical therapy. Living will DNR. cc: Ranulfo Solo MD
[2020-01-27] MEDS: VITAMIN D PO SCH (09:15)
[2020-01-27] MEDS: XARELTO PO SCH (09:16)
[2020-01-27] MEDS: EFFEXOR XR PO SCH (09:16)
[2020-01-27] MEDS: VITAMIN C PO SCH (09:16)
[2020-01-27] MEDS: THERA M PLUS PO SCH (09:16)
[2020-01-27] MEDS: ASPIRIN PO SCH (09:16)
[2020-01-27] MEDS: LACTULOSE PO SCH (09:17)
[2020-01-27] MEDS: BREO ELLIPTA 100/25 MCG INH INH SCH (11:44)
[2020-01-27 11:52] VITALS: BP 131/66
== END 2020-01-27 15:59 | DRG 178 ==
LOC: ED 09:07 → 2N 11:43 → 3N 01-26 12:12
PROVIDERS: ADMIT Internal Medicine; ATTEND Internal Medicine